=== PATIENT | female | born 1990 | race Caucasian/White ===

== ENCOUNTER 2022-12-21 08:42 | Emergency (ER) | payer BC, SELFPAY ==
--- NOTE | 2022-12-21 08:48 | ED.GENADULT ---
HPI - General Adult General Chief complaint: Upper Respiratory Infection Stated complaint: ALLERGIC REACTION Source: patient and RN notes reviewed History of Present Illness HPI narrative: 32-year-old female presents to urgent care with complaints seasonal allergies. Patient states she is allergic to oak trees and returned from [place] on Monday night with almost immediate symptoms. Patient states before she left for [place] approximately 10 days ago she was having severe allergic symptoms and was seen at an urgent care where she was given steroids. Patient states the steroids helped tremendously the patient took her last dose today after skipping a few days. Patient presents severe congestion and runny nose, itchy throat and mouth, itchy red eyes. Patient takes Lisa and nasal spray every day Benadryl. Denies any vomiting, fevers, chest pain, or shortness of Breath. Some parts of this dictation were generated by voice recognition software and may contain typographical and/or grammatical inaccuracies. Related Data Home Medications Medication Instructions Recorded Confirmed lamotrigine 100 mg tablet 200 mg PO DAILY 12/21/22 12/21/22 quetiapine 100 mg tablet 100 mg PO DAILY 12/21/22 12/21/22 quetiapine 400 mg tablet 400 mg PO HS 12/21/22 12/21/22 Allergies Allergy/AdvReac Type Severity Reaction Status Date / Time No Known Allergies Allergy Verified 12/21/22 08:54 Review of Systems Review of Systems: Pertinent positives and pertinent negatives per HPI. PMFSH Comments At the time of my signature, I reviewed and agree with the nursing past medical, surgical, social, and family history. There is no relevant family history pertinent to the patient complaint. Exam Narrative: GENERAL: This is a well-nourished, well-developed patient, in no apparent distress. HEAD: normocephalic, atraumatic. EYES: Sclera mildly erythemic bilaterally. Vision is grossly intact. EARS: External ears normal, auditory canals clear and without drainage, TMs normal without perforation. Hearing grossly intact. NOSE: congested THROAT: Mucous membranes moist, posterior pharynx Erythemic. NECK: Neck supple, non-tender without lymphadenopathy, masses or thyromegaly. CARDIOVASCULAR: Regular rate RESPIRATORY: no respiratory distress SKIN: warm, intact with no suspicious lesions or rash, good texture and turgor. NEURO: awake, alert, and oriented to person, place and time. There were no obvious focal neurologic abnormalities. Course Course Level of Care: Express Care Visit Vital Signs Vital signs: Reviewed Medical Decision Making MDM Narrative Medical decision making narrative: Take the steroids as directed. May take Lisa in the morning and Zyrtec at night if needed. Follow up with your retail manager or an layout artist in the next couple weeks. Differential Diagnosis Differential Diagnosis: seasonal allergies, URI, sinusitis Critical Care Time Critical Care Time Critical Care Time: No Discharge Plan Discharge Clinical Impression: Seasonal allergic reaction Patient Disposition: Home, Self-Care Condition: Stable Instructions: Allergies (ED) Additional Instructions: Take the steroids as directed. May take Lisa in the morning and Zyrtec at night if needed. Follow up with your retail manager or an layout artist in the next couple weeks. Prescriptions: New prednisone 20 mg tablet 40 mg PO DAILY 5 Days Qty: 10 0RF No Action quetiapine 100 mg tablet 100 mg PO DAILY lamotrigine 100 mg tablet 200 mg PO DAILY quetiapine 400 mg tablet 400 mg PO HS Follow-up/Referrals: UNKNOWN,DOCTOR [Non-Staff] - Time of Disposition: 09:06
[2022-12-21 08:56] VITALS: BP 120/86; PULSE 91; RESP 16; TEMP 35.9; O2SAT 100
[2022-12-21] MEDS: predniSONE 20 MG TABLET 60 MG PO (09:09)
== END 2022-12-21 09:16 | disposition home or self-care (01) ==
PROVIDERS: Emergency Provider Nurse Practitioner Family
DX: J30.2 Other seasonal allergic rhinitis (principal); F31.9 Bipolar disorder, unspecified
CPT/HCPCS: 99213; G0463; J7512